=== PATIENT | female | born 1930 | race Two or more races ===

== ENCOUNTER 2019-01-14 20:49 | Emergency (ER) | payer OTHER ==
[~2019-01-14] VITALS: Ht 152.4 cm; Wt 41.3 kg
[2019-01-14] MEDS ORDERED: K-TAB10 MEQ PO (21:20)
[2019-01-14] MEDS ORDERED: LOSARTAN-HCTZ1 EACH PO (21:21)
[2019-01-14] MEDS ORDERED: ZOCOR20 MG PO (21:21)
[2019-01-14] MEDS ORDERED: NORFLEX100MG PO (21:21)
[2019-01-14] MEDS ORDERED: SYNTHROID50 MCG PO (21:21)
[2019-01-14] MEDS ORDERED: URIN D.S. TABL1 EACH PO (21:22)
[2019-01-14] MEDS ORDERED: KEPPRA500 MG PO (21:22)
== END 2019-01-14 23:59 | disposition home or self-care (01) ==
LOC: ER 20:49
DX: S61.451A Open bite of right hand, initial encounter (principal); W55.01XA Bitten by cat, initial encounter; Y93.89 Activity, other specified; Y92.098 Other place in other non-institutional residence as the place of occurrence of the external cause; Y99.8 Other external cause status